=== PATIENT | male | born 1970 | race Two or more races ===

== ENCOUNTER 2021-01-13 23:18 | Emergency (ER) | payer SELFPAY ==
[~2021-01-13] VITALS: Ht 172.7 cm; Wt 72.6 kg
[2021-01-13 23:32] VITALS: BP 148/82
== END 2021-01-14 01:52 | disposition left against medical advice (07) ==
LOC: ER 23:18
DX: M79.605 Pain in left leg (principal); M79.604 Pain in right leg; M79.602 Pain in left arm; M79.601 Pain in right arm; Z53.21 Procedure and treatment not carried out due to patient leaving prior to being seen by health care provider